=== PATIENT | male | born 2000 | race Caucasian/White ===

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

== ENCOUNTER 2020-11-20 07:34 | Emergency (ER) | payer SELFPAY ==
[~2020-11-20] VITALS: Ht 175.3 cm; Wt 52.3 kg
[~2020-11-20 07:34] MED LIST: CYCL10TA9 PO; IBUP-1780 PO
[2020-11-20] MEDS ORDERED: IBUPROFEN 600 MG (MOTRIN) TAB PO ONE (07:45)
[2020-11-20 07:46] VITALS: BP 128/89
--- NOTE | 2020-11-20 07:51 | ED General ---
General Chief Complaint: Exposure Stated Complaint: SUNBURN; SYNCOPAL EPISODES; HEADACHE Source of Information: Patient History of Present Illness Date Seen by Provider: Nov 20, 2020 Time Seen by Provider: 07:35 Initial Comments Patient is 20-year-old male who presents with first and second degree sunburns to legs and torso. Patient states he was out at the [employer] 4 days ago. States he has had persistent pain and swelling and redness over his lower legs and his back with difficulty sleeping at night. Pain is rated moderate to severe. He is used aloe vera for a sunburn with limited relief. He has mild blistering to his back. He also reports dizziness and headache. He has not had ibuprofen, aspirin, Tylenol or any pain medication. 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 He has not been evaluated by his PCP. No other acute symptoms or complaints. Timing/Duration: 3-4 Days Severity: Moderate Modifying Factors: improves with Other Associated Systoms: Other Allergies and Home Medications Allergies Coded Allergies: No Known Drug Allergies (Unverified , 11/15/18) Home Medications Cyclobenzaprine HCl 10 Mg Tablet, 10 MG PO Q8H PRN for chest wall pain Prescribed by: SHILO HOLT on 08/21/19 0957 Ibuprofen 800 Mg Tablet, 800 MG PO Q8H PRN for PAIN Prescribed by: SHILO HOLT on 08/21/19 0957 Patient Home Medication List Home Medication List Reviewed: Yes Review of Systems Review of Systems Constitutional: see HPI EENTM: see HPI Respiratory: see HPI Cardiovascular: see HPI Gastrointestinal: see HPI Genitourinary: see HPI Musculoskeletal: see HPI Skin: see HPI Psychiatric/Neurological: See HPI Hematologic/Lymphatic: See HPI Immunological/Allergic: see HPI All Other Systems Reviewed Negative Unless Noted: Yes Past Ebsbgqa-Zmdxmo-Juavbe Hx Past Med/Social Hx: Reviewed Nursing Past Med/Soc Hx Patient Social History Alcohol Beverage of Choice: Beer Drug of Choice: THC Type Used: Cigarettes 2nd Hand Smoke Exposure: No Recent Hopitalizations: No Seasonal Allergies Seasonal Allergies: No Past Medical History Surgeries: No Respiratory: No Cardiac: No Neurological: No Genitourinary: No Gastrointestinal: No Musculoskeletal: No Endocrine: No HEENT: No Cancer: No Psychosocial: Yes Anxiety, Depression Integumentary: No Physical Exam Vital Signs Capillary Refill : Height, Weight, BMI Height: 5'9.00" Weight: 117lbs. oz. 53.163433ly; 16.00 BMI Method:Actual General Appearance: No Apparent Distress, Anxious Eyes: Bilateral Eye Normal Inspection, Bilateral Eye PERRL, Bilateral Eye EOMI HEENT: PERRL/EOMI, TMs Normal, Pharynx Normal, Moist Mucous Membranes Neck: Full Range of Motion, Non Tender, Supple Respiratory: Lungs Clear, Normal Breath Sounds Cardiovascular: Regular Rate, Rhythm Gastrointestinal: Soft Back: Other (First-degree sunburns covering 80% of the patient's back, second- degree sunburns covering 5% of back) Extremity: Other (First-degree sunburn covering anterior legs from lower thigh to ankles) Neurologic/Psychiatric: Alert, Oriented x3, No Motor/Sensory Deficits Skin: Rash, Other Lymphatic: Other Focused Exam Sepsis Stage: Ruled Out Progress/Results/Core Measures Suspected Sepsis SIRS Temperature: Pulse: Respiratory Rate: Blood Pressure / Mean: Results/Orders My Orders Orders - AKIRA CAMPBELL DO Ibuprofen Tablet (Motrin Tablet) (11/20/20 07:45) Vital Signs/I&O Capillary Refill : Departure Communication (Admissions) Symptoms consistent with sun toxicity/burn and mild heat stroke. Recommendations are supportive care with ibuprofen, aloe vera, pain medication. Courtesy work note provided Impression Primary Impression: Sunburn, unspecified Additional Impression: Heat stress Disposition: 01 HOME, SELF-CARE Condition: Stable Departure-Patient Inst. Decision time for Depature: 07:54 Referrals: NO,LOCAL PHYSICIAN (PCP/Family) Primary Care Physician Patient Instructions: Sunburn, Heat Illness ED Add. Discharge Instructions: You were evaluated in the emergency department for heat illness and sunburn. Please apply aloe vera to aguayo 2-3 times daily and take 600 mg of ibuprofen 3 times daily. Additionally, you may take 1 hydrocodone prior to bedtime to help with sleep. Please limit future sun exposure and apply high SPF liberally prior to any reexposure. Follow-up with your PCP in 3 to 5 days as needed if further concerns. All discharge instructions reviewed with patient and/or family. Voiced understanding. Scripts Hydrocodone/Acetaminophen (Hydrocodone-Acetamin 5-325 mg) 1 Each Tablet 1 TAB PO qhs PRN for PAIN-MODERATE (5-7), #5 TAB Prov: AKIRA CAMPBELL DO 11/20/20 Work/School Note: Work Release Form Date Seen in the Emergency Department: Nov 20, 2020 Return to Work: Nov 21, 2020 Restrictions: No Restrictions AKIRA CAMPBELL DO Nov 20, 2020 07:51
[2020-11-20] MEDS ORDERED: ACHD5005 PO (07:54)
== END 2020-11-20 08:04 | disposition home or self-care (01) ==
LOC: EDUNIT# 07:34 → ER FS 07:36
DX: T67.5XXA Heat exhaustion, unspecified, initial encounter (principal)
CPT/HCPCS: 99283

== ENCOUNTER 2021-06-27 11:05 | Emergency (ER) | payer SELFPAY ==
[~2021-06-27] VITALS: Ht 175 cm; Wt 52.7 kg
[~2021-06-27 11:05] MED LIST changes: +ACHD5005 PO; +CYCL10TA25 PO; -CYCL10TA9 PO
[2021-06-27 11:53] VITALS: BP 148/90
--- NOTE | 2021-06-27 11:55 | ED General ---
General Chief Complaint: General Problems/Pain Stated Complaint: TESTICULAR PAIN Source of Information: Patient Exam Limitations: No Limitations History of Present Illness Date Seen by Provider: Jun 27, 2021 Time Seen by Provider: 11:30 Initial Comments Patient is a 21-year-old male who presents with multiple complaints. He reports dull fullness in his lower pelvis. He denies testicle pain tenderness or swelling. Denies urinary frequency urgency dysuria but does report cloudy odor mucousy urine. No flank pain. Reports fever and chills, without measured temperature. Symptoms began earlier today. Denies headache dizziness chest pain palpitations, abdominal pain. Reports nausea without vomiting. No constipation or diarrhea. Patient reports chronic twitching and generalized fatigue. He has history of daily marijuana use and inconsistent eating. He ate pizza yesterday has not had anything to eat today. Patient does not have a primary care doctor. Denies drug use beyond marijuana. Timing/Duration: 1-3 Hours Severity: Mild Modifying Factors: improves with Other Associated Systoms: Other Allergies and Home Medications Allergies Coded Allergies: No Known Drug Allergies (Unverified , 11/15/18) Patient Home Medication List Home Medication List Reviewed: Yes Cyclobenzaprine HCl (Cyclobenzaprine HCl) 10 Mg Tablet, 10 MG PO Q8H PRN for chest wall pain Prescribed by: SHILO HOLT on 08/21/19 0957 Hydrocodone/Acetaminophen (Hydrocodone-Acetamin 5-325 mg) 1 Each Tablet, 1 TAB PO qhs PRN for PAIN-MODERATE (5-7) Prescribed by: AKIRA CAMPBELL on 11/20/20 0754 Ibuprofen (Ibuprofen) 800 Mg Tablet, 800 MG PO Q8H PRN for PAIN Prescribed by: SHILO HOLT on 08/21/19 0957 Review of Systems Review of Systems Constitutional: see HPI EENTM: see HPI Respiratory: see HPI Cardiovascular: see HPI Gastrointestinal: see HPI Genitourinary: see HPI Musculoskeletal: see HPI Skin: see HPI Psychiatric/Neurological: See HPI Hematologic/Lymphatic: See HPI Immunological/Allergic: see HPI All Other Systems Reviewed Negative Unless Noted: Yes Past Anlurmv-Vggjtv-Uzrbtt Hx Patient Social History Tobacco Use?: Yes Seasonal Allergies Seasonal Allergies: No Past Medical History Surgeries: No Respiratory: No Cardiac: No Neurological: No Genitourinary: No Gastrointestinal: No Musculoskeletal: No Endocrine: No HEENT: No Cancer: No Psychosocial: Yes Anxiety, Depression Integumentary: No Physical Exam Vital Signs Vital Signs - First Documented 06/27/21 11:53 Pulse 98 Resp 16 B/P (MAP) 148/90 (109) O2 Delivery Room Air Capillary Refill : Height, Weight, BMI Height: 5'9.00" Weight: 117lbs. oz. 53.641336uw; 17.00 BMI Method:Actual General Appearance: No Apparent Distress, Anxious, Thin, Other (Disheveled) Eyes: Bilateral Eye Normal Inspection, Bilateral Eye PERRL HEENT: PERRL/EOMI Neck: Full Range of Motion, Supple Respiratory: Chest Non Tender, Lungs Clear Cardiovascular: Regular Rate, Rhythm Gastrointestinal: Non Tender, Soft Back: Normal Inspection, No CVA Tenderness Neurologic/Psychiatric: Alert, Oriented x3 Skin: Normal Color Focused Exam Sepsis Stage: Ruled Out Progress/Results/Core Measures Suspected Sepsis SIRS Temperature: Pulse: Respiratory Rate: Laboratory Tests 06/27/21 11:52: White Blood Count 7.8 Blood Pressure / Mean: Laboratory Tests 06/27/21 11:52: Creatinine 0.79, Platelet Count 217, Total Bilirubin 0.7 Results/Orders Lab Results Laboratory Tests Test 06/27/21 11:43 06/27/21 11:45 06/27/21 11:52 Range/Units Glucometer 81 70-110 MG/DL Urine Color YELLOW Urine Clarity CLEAR Urine pH 6.0 5-9 Urine Specific [place] >=1.030 1.016-1.022 Urine Protein NEGATIVE NEGATIVE Urine Glucose (UA) NEGATIVE NEGATIVE Urine Ketones 3+ H NEGATIVE Urine Nitrite NEGATIVE NEGATIVE Urine Bilirubin 1+ H NEGATIVE Urine Urobilinogen 1.0 < = 1.0 MG/DL Urine Leukocyte Esterase NEGATIVE NEGATIVE Urine RBC (Auto) NEGATIVE NEGATIVE Urine RBC RARE /HPF Urine WBC 0-2 /HPF Urine Crystals NONE /LPF Urine Bacteria RARE /HPF Urine Casts NONE /LPF Urine Mucus LARGE H /LPF Urine Culture Indicated NO White Blood Count 7.8 4.3-11.0 10^3/uL Red Blood Count 5.26 4.30-5.52 10^6/uL Hemoglobin 16.1 13.3-17.7 g/dL Hematocrit 48 40-54 % Mean Corpuscular Volume 91 80-99 fL Mean Corpuscular Hemoglobin 31 25-34 pg Mean Corpuscular Hemoglobin Concent 34 32-36 g/dL Red Cell Distribution Width 12.6 10.0-14.5 % Platelet Count 217 130-400 10^3/uL Mean Platelet Volume 10.4 9.0-12.2 fL Immature Granulocyte % (Auto) 0 % Neutrophils (%) (Auto) 87 H 42-75 % Lymphocytes (%) (Auto) 3 L 12-44 % Monocytes (%) (Auto) 9 0-12 % Eosinophils (%) (Auto) 0 0-10 % Basophils (%) (Auto) 0 0-10 % Neutrophils # (Auto) 6.8 1.8-7.8 10^3/uL Lymphocytes # (Auto) 0.2 L 1.0-4.0 10^3/uL Monocytes # (Auto) 0.7 0.0-1.0 10^3/uL Eosinophils # (Auto) 0.0 0.0-0.3 10^3/uL Basophils # (Auto) 0.0 0.0-0.1 10^3/uL Immature Granulocyte # (Auto) 0.0 0.0-0.1 10^3/uL Neutrophils % (Manual) 92 % Monocytes % (Manual) 3 % Eosinophils % (Manual) 2 % Band Neutrophils 3 % Atypical Lymphocytes 1 % Toxic Granulation 3+ Platelet Estimate NORMAL Blood Morphology Comment NORMAL Sodium Level 136 135-145 MMOL/L Potassium Level 3.9 3.6-5.0 MMOL/L Chloride Level 98 98-107 MMOL/L Carbon Dioxide Level 23 21-32 MMOL/L Anion Gap 15 H 5-14 MMOL/L Blood Urea Nitrogen 9 7-18 MG/DL Creatinine 0.79 0.60-1.30 MG/DL Estimat Glomerular Filtration Rate 130 BUN/Creatinine Ratio 11 Glucose Level 93 70-105 MG/DL Calcium Level 9.8 8.5-10.1 MG/DL Corrected Calcium 8.5-10.1 MG/DL Total Bilirubin 0.7 0.1-1.0 MG/DL Aspartate Amino Transf (AST/SGOT) 16 5-34 U/L Alanine Aminotransferase (ALT/SGPT) 13 0-55 U/L Alkaline Phosphatase 60 40-136 U/L Total Protein 7.9 6.4-8.2 GM/DL Albumin 5.3 H 3.2-4.5 GM/DL My Orders Orders - AKIRA CAMPBELL [facility]S (06/27/21 11:37) Ua Culture If Indicated (06/27/21 11:44) Cbc With Automated Diff (06/27/21 11:44) Comprehensive Metabolic Panel (06/27/21 11:44) Manual Differential (06/27/21 11:52) Vital Signs/I&O 06/27/21 11:53 Pulse 98 Resp 16 B/P (MAP) 148/90 (109) O2 Delivery Room Air Capillary Refill : Departure Communication (Admissions) Patient's abdomen soft, nonsurgical. Lab work is reassuring. Patient's symptoms are consistent with starvation ketosis due to poor diet. Recommendations are better diet hygiene with PCP follow-up. Patient instructed to refrain from marijuana as this is likely contributing to his symptoms. Return precautions reviewed. Patient verbalizes understanding and agreement discharge instructions prior to departure. Impression Primary Impression: Abdominal pain Additional Impressions: Fatigue Starvation ketoacidosis Disposition: HOME, SELF-CARE Condition: Stable Departure-Patient Inst. Decision time for Depature: 13:14 Referrals: NO,LOCAL PHYSICIAN (PCP/Family) Primary Care Physician Patient Instructions: Fatigue ED Add. Discharge Instructions: Your evaluated in the emergency department for abdominal fullness nausea and fatigue. Your symptoms are consistent with poor diet and caloric intake. Please eat regular meals and avoid marijuana use. Establish with a local primary care provider for additional screening and evaluation of anxiety, Return to the ED if new or worsening symptoms. All discharge instructions reviewed with patient and/or family. Voiced understanding. AKIRA CAMPBELL DO Jun 27, 2021 11:55
[2021-06-27 11:57] LABS: CLARITY,URINE CLEAR; COLOR,URINE YELLOW; GLUCOSE, URINE (UA) NEGATIVE (NEGATIVE); KETONES,URINE 3+ (NEGATIVE); LEUKOCYTE ESTERASE ,URINE NEGATIVE (NEGATIVE); NITRITE,URINE NEGATIVE (NEGATIVE); PROTEIN,URINE NEGATIVE (NEGATIVE)
[2021-06-27 12:10] LABS: BASOPHILS % (AUTO) 0 % (0-10); EOSINOPHILS % (AUTO) 0 % (0-10); HEMATOCRIT 48 % (40-54); HEMOGLOBIN 16.1 g/dL (13.3-17.7); LYMPHOCYTES # (AUTO) 0.2 10^3/uL (1.0-4.0); LYMPHOCYTES % (AUTO) 3 % (12-44); MEAN CORPUSCULAR HEMOGLOBIN 31 pg (25-34); MEAN CORPUSCULAR HGB CONC 34 g/dL (32-36); MEAN CORPUSCULAR VOLUME 91 fL (80-99); MEAN PLATELET VOLUME 10.4 fL (9.0-12.2); MONOCYTES # (AUTO) 0.7 10^3/uL (0.0-1.0); MONOCYTES % (AUTO) 9 % (0-12); NEUTROPHILS # (AUTO) 6.8 10^3/uL (1.8-7.8); NEUTROPHILS % (AUTO) 87 % (42-75); PLATELET COUNT 217 10^3/uL (130-400); WHITE BLOOD COUNT 7.8 10^3/uL (4.3-11.0)
[2021-06-27 12:44] LABS: BACTERIA,URINE RARE /HPF; BILIRUBIN,URINE 1+ (NEGATIVE); RBC,URINE RARE /HPF; WBC,URINE 0-2 /HPF
[2021-06-27 12:46] LABS: BAND NEUTROPHILS 3 %; NEUTROPHILS % (MANUAL) 92 %
[2021-06-27 12:47] LABS: ATYPICAL LYMPHOCYTES 1 %; EOSINOPHILS % (MANUAL) 2 %; MONOCYTES % (MANUAL) 3 %; PLATELET ESTIMATE NORMAL; RBC MORPH NORMAL; TOXIC GRANULATION/VACUOLAZATIO 3+
[2021-06-27 12:49] LABS: BUN/CREATININE RATIO 11; CARBON DIOXIDE 23 MMOL/L (21-32); CHLORIDE 98 MMOL/L (98-107); CREATININE SERUM 0.79 MG/DL (0.60-1.30); GFR ESTIMATED 130; POTASSIUM 3.9 MMOL/L (3.6-5.0); SODIUM 136 MMOL/L (135-145)
[2021-06-27 12:50] LABS: ALANINE AMINOTRANSFERASE 13 U/L (0-55); ALBUMIN 5.3 GM/DL (3.2-4.5); ALKALINE PHOSPHATASE 60 U/L (40-136); BILIRUBIN,TOTAL 0.7 MG/DL (0.1-1.0); CALCIUM 9.8 MG/DL (8.5-10.1); GLUCOSE 93 MG/DL (70-105); TOTAL PROTEIN 7.9 GM/DL (6.4-8.2)
== END 2021-06-27 13:26 | disposition home or self-care (01) ==
LOC: EDUNIT# 11:05 → ER FS 11:07
DX: R10.2 Pelvic and perineal pain (principal); R53.83 Other fatigue; E87.2 Acidosis
CPT/HCPCS: 36415; 80053; 81000; 82947; 85007; 85027; 99282

== ENCOUNTER 2022-05-12 19:52 | Emergency (ER) | payer SELFPAY ==
[~2022-05-12] VITALS: Ht 175.2 cm; Wt 52.9 kg
[2022-05-12] MEDS ORDERED: GUAI120013 PO (20:32)
--- NOTE | 2022-05-12 20:32 | ED Cough/URI ---
General Chief Complaint: Cough/Cold/Flu Symptoms Stated Complaint: COUGH,CONGESTION Source: patient Exam Limitations: no limitations History of Present Illness Date Seen by Provider: May 12, 2022 Time Seen by Provider: 20:00 Initial Comments Patient is a 22-year-old male who with known influenza exposure presents with chest congestion, cough and chest wall pain after persistent coughing. Patient is a smoker. Denies history of asthma, wheezing or inhaler use. No medications or therapies taken prior to ED arrival. Symptom onset was yesterday. Timing/Duration: yesterday Severity/Quality: other Prior Episodes/Possible Cause: smoke exposure Modifying Factors: Improves With Other Associated Symptoms: other Allergies and Home Medications Allergies Coded Allergies: No Known Drug Allergies (Unverified , 11/15/18) Patient Home Medication List Home Medication List Reviewed: Yes Cyclobenzaprine HCl (Cyclobenzaprine HCl) 10 Mg Tablet, 10 MG PO Q8H PRN for chest wall pain Prescribed by: SHILO HOTL on 08/21/19 0957 Hydrocodone/Acetaminophen (Hydrocodone-Acetamin 5-325 mg) 1 Each Tablet, 1 TAB PO qhs PRN for PAIN-MODERATE (5-7) Prescribed by: AKIRA CAMPBELL on 11/20/20 0754 Ibuprofen (Ibuprofen) 800 Mg Tablet, 800 MG PO Q8H PRN for PAIN Prescribed by: SHILO HOLT on 08/21/19 0957 Review of Systems Review of Systems Constitutional: see HPI EENTM: see HPI Respiratory: see HPI Cardiovascular: see HPI Gastrointestinal: see HPI Genitourinary: see HPI Musculoskeletal: see HPI Skin: see HPI Psychiatric/Neurological: See HPI Hematologic/Lymphatic: See HPI Immunological/Allergic: no symptoms reported, see HPI All Other Systems Reviewed Negative Unless Noted: No Past Eoutjbl-Lbjfib-Obneon Hx Patient Social History Tobacco Use?: No Seasonal Allergies Seasonal Allergies: No Past Medical History Surgeries: No Respiratory: No Cardiac: No Neurological: No Genitourinary: No Gastrointestinal: No Musculoskeletal: No Endocrine: No HEENT: No Cancer: No Psychosocial: Yes Anxiety, Depression Integumentary: No Physical Exam Capillary Refill : Height: 5'9.00" Weight: 117lbs. oz. 53.255910aj; 17.00 BMI Method:Actual General Appearance: WD/WN, no apparent distress Eyes: Bilateral Eye Normal Inspection, Bilateral Eye PERRL, Bilateral Eye EOMI HEENT: PERRL/EOMI, normal ENT inspection, TMs normal, pharynx normal Neck: non-tender, supple, normal inspection Respiratory: chest non-tender, lungs clear, normal breath sounds Cardiovascular: normal peripheral pulses, regular rate, rhythm, no edema Gastrointestinal: non tender, soft Focused Exam Sepsis Stage: Ruled Out Progress/Results/Core Measures Suspected Sepsis SIRS Temperature: Pulse: Respiratory Rate: Blood Pressure / Mean: Results/Orders Vital Signs/I&O Capillary Refill : Departure Communication (Admissions) Viral syndrome consistent with influenza. Patient without respiratory compromise normal vital signs and clear breath sounds in the emergency department. Recommendations are watchful waiting supportive care with PCP follow-up as needed. Return precautions reviewed. Patient verbalizes understanding agreement with discharge instructions prior to departure. Impression Primary Impression: Influenza Disposition: HOME, SELF-CARE Condition: Stable Departure-Patient Inst. Decision time for Depature: 20:31 Referrals: NO,LOCAL PHYSICIAN (PCP/Family) Primary Care Physician Patient Instructions: Flu Add. Discharge Instructions: You were evaluated in the emergency department for cough, body aches and shortness of breath. Your exam is consistent with influenza. Please increase fluids, take 600 mg of ibuprofen 3 times daily and Mucinex for her cough. Follow-up with your PCP in 3 to 5 days for reevaluation if symptoms persist. All discharge instructions reviewed with patient and/or family. Voiced understanding. Scripts Guaifenesin (Mucinex) 1,200 Mg Tab.er.12h 1200 MG PO BID for 10 Days, TAB Prov: AKIRA CAMPBELL DO 05/12/22 AKIRA CAMPBELL DO May 12, 2022 20:32
[2022-05-12] MEDS ORDERED: IBUPROFEN 600 MG (MOTRIN) TAB PO ONE (20:45)
[2022-05-12 21:10] VITALS: BP 135/84
== END 2022-05-12 21:10 | disposition home or self-care (01) ==
LOC: EDUNIT# 19:52 → ER FS 19:53
DX: J11.1 Influenza due to unidentified influenza virus with other respiratory manifestations (principal); F17.200 Nicotine dependence, unspecified, uncomplicated; Z28.310 Unvaccinated for COVID-19
CPT/HCPCS: 99283

== ENCOUNTER 2022-10-04 19:09 | Emergency (ER) | payer SELFPAY ==
[~2022-10-04] VITALS: Ht 175.2 cm; Wt 55.2 kg
[~2022-10-04 19:09] MED LIST changes: +GUAI120013 PO
[2022-10-04 19:15] VITALS: BP 142/77
--- NOTE | 2022-10-04 19:35 | ED Chest Pain ---
General Chief Complaint: Chest Wall Stated Complaint: CHEST PAIN|LEFT ARM PAIN Nursing Triage Note: Patient states that he has had intermittent tightness in his chest for the last 3 years. Patient reports that he had noticed that it was happening more often than it used to. When the patient woke up today, he states that it started and it has been consistent all day long. Patient reports that his girlfriend rubbed his back and it radiated down his left arm but wasn't consistently in his arm. Patient denies that he is feeling pain but more of a tightness. He is unable to rate it on the 1-10 scale. Patient denies any sick contacts or symptoms of illness. Patient hasn't sought treatment for this. Source: patient, other (Girlfriend) Exam Limitations: no limitations History of Present Illness Date Seen by Provider: October 04, 2022 Time Seen by Provider: 19:17 Initial Comments 22-year-old male patient with history of depression and smoking, complaining of left-sided chest pain since 2300 last night as a constant pain with radiation to left arm. Patient states the pain is a pressure pain and getting worse with movement of left arm. Patient denies shortness of breath, nausea, dizziness, palpitation, near syncope. Patient states he has had intermittent episodes of left-sided chest pain for the last 3 years that usually happen once every other week but getting more often recently. 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 Patient rated his pain 6/10 and stated he did not take any pain medication. Allergies and Home Medications Allergies Coded Allergies: No Known Drug Allergies (Unverified , 11/15/18) Patient Home Medication List Home Medication List Reviewed: Yes Cyclobenzaprine HCl (Cyclobenzaprine HCl) 10 Mg Tablet, 10 MG PO Q8H PRN for chest wall pain Prescribed by: SHILO HOLT on 08/21/19 0957 Guaifenesin (Mucinex) 1,200 Mg Tab.er.12h, 1,200 MG PO BID Prescribed by: AKIRA CAMPBELL on 05/12/222031 Hydrocodone/Acetaminophen (Hydrocodone-Acetamin 5-325 mg) 1 Each Tablet, 1 TAB PO qhs PRN for PAIN-MODERATE (5-7) Prescribed by: AKIRA CAMPBELL on 11/20/20 0754 Ibuprofen (Ibuprofen) 800 Mg Tablet, 800 MG PO Q8H PRN for PAIN Prescribed by: SHILO HOLT on 08/21/19 0957 Review of Systems Review of Systems Constitutional: no symptoms reported EENTM: No Symptoms Reported Respiratory: No Symptoms Reported Cardiovascular: See HPI Genitourinary: No Symptoms Reported Musculoskeletal: no symptoms reported Skin: no symptoms reported Psychiatric/Neurological: No Symptoms Reported Endocrine: No Symptoms Reported Hematologic/Lymphatic: No Symptoms Reported All Other Systems Reviewed Negative Unless Noted: Yes Past Xmrjygw-Bfjsmc-Kwqzeb Hx Patient Social History Tobacco Use?: Yes Tobacco type used: Cigarettes Substance use?: Yes Substance type: Marijuana Alcohol Use?: No Pt feels they are or have been: No Immunizations Up To Date First/Initial COVID19 Vaccinat: Unvaccinated Seasonal Allergies Seasonal Allergies: No Past Medical History Surgery/Hospitalization HX: Denied PMH/PSH Surgeries: No Respiratory: No Cardiac: No Neurological: No Genitourinary: No Gastrointestinal: No Musculoskeletal: No Endocrine: No HEENT: No Cancer: No Psychosocial: Yes Anxiety, Depression Integumentary: No Physical Exam Vital Signs Vital Signs - First Documented 10/04/22 19:15 Temp 37.0 Pulse 98 Resp 15 B/P (MAP) 142/77 (98) Pulse Ox 98 O2 Delivery Room Air Capillary Refill : Less Than 3 Seconds Height, Weight, BMI Height: 5'9.00" Weight: 117lbs. oz. 53.209777du; 17.00 BMI Method:Actual General Appearance: No Apparent Distress, Thin HEENT: PERRL/EOMI, TMs Normal, Normal ENT Inspection, Pharynx Normal Neck: Full Range of Motion, Normal Inspection, Non Tender Respiratory: Lungs Clear, Normal Breath Sounds, No Accessory Muscle Use, No Respiratory Distress, Other (Reproducible left-sided chest pain) Cardiovascular: Regular Rate, Rhythm, No Edema, No Gallop, No JVD, No Murmur, Normal Peripheral Pulses Gastrointestinal: Normal Bowel Sounds, No Organomegaly, No Pulsatile Mass, Non Tender Extremity: Normal Capillary Refill, Normal Inspection, Normal Range of Motion, Non Tender, No Calf Tenderness, No Pedal Edema Neurologic/Psychiatric: Alert, Oriented x3, No Motor/Sensory Deficits, Normal Mood/Affect Skin: Normal Color, Warm/Dry Lymphatic: No Adenopathy Progress/Results/Core Measures Results/Orders Vital Signs/I&O 10/04/22 19:15 Temp 37.0 Pulse 98 Resp 15 B/P (MAP) 142/77 (98) Pulse Ox 98 O2 Delivery Room Air Blood Pressure Mean: 98 Progress Progress Note : Progress Note 22-year-old male patient with ESAU score of 0 with complaining of left-sided chest wall pain with movement of left arm. Patient has had episodes of the same pain for the last 3 years and was seen in this emergency room previously for the same problem. Patient admitted to smoke cigarettes and marijuana. Patient had a stable vital sign. Patient had reproducible chest wall pain. EKG was unremarkable except for short NM interval. Patient did not want to have pain medication in ER or prescription of pain medication for home. Patient did not take any pain medication today and advised to take ibuprofen as needed for pain. Patient advised to quit smoking and follow-up with primary care physician or return to ER as needed. Initial ECG Impression Date: October 04, 2022 Initial ECG Impression Time: 19:19 Initial ECG Rate: 93 Initial ECG Rhythm: Normal Sinus Initial ECG Intervals: NM (Short) Initial ECG Intervals EKG showed normal sinus rhythm at rate of 93, NM interval of 105, QT of 299 and QTc of 349, QRS duration of 90, no acute ST and T wave elevation Departure Impression Primary Impression: Chest wall pain Disposition: 01 HOME, SELF-CARE Condition: Stable Departure-Patient Inst. Decision time for Depature: 19:32 Referrals: NO,LOCAL PHYSICIAN (PCP/Family) Primary Care Physician Patient Instructions: Chest Pain That Is Not Caused by the Heart (DC), Muscle Strain ED Add. Discharge Instructions: Take [id number] ibuprofen and Tylenol alternate as needed for pain Follow-up with your primary care physician in 3 to 5 days Quit smoking cigarettes and marijuana Return to ER as needed All discharge instructions reviewed with patient and/or family. Voiced understanding. Work/School Note: Work Release Form Return to Work: October 06, 2022 TAYA BOWMAN MD October 04, 2022 19:35
== END 2022-10-04 19:37 | disposition home or self-care (01) ==
LOC: EDUNIT# 19:09 → ER FS 19:13
DX: R07.89 Other chest pain (principal); F17.210 Nicotine dependence, cigarettes, uncomplicated; Z28.310 Unvaccinated for COVID-19
CPT/HCPCS: 99285